=== PATIENT | female | born 1955 | race Caucasian/White ===

== ENCOUNTER 2023-12-11 17:35 | Inpatient (IN) | payer MEDICARE, SELFPAY ==
[2023-12-11] VITALS (15 sets, daily range): BP systolic 92–134; BP diastolic 42–62; PULSE 80–96; RESP 16–34; TEMP 37.1–38.6; O2SAT 92–99; BMI 36.6
--- NOTE | 2023-12-11 18:01 | DI.RAD.S_ITS ---
PROCEDURE: XR CHEST 1V INDICATIONS: suspected sepsis TECHNIQUE: One view of the chest was acquired. COMPARISON: None. FINDINGS: Surgical changes and devices: There is a right-sided chest port, with the tip overlying the mid to lower aspect of the superior vena cava, 2-3 cm cavoatrial junction. There is a closure device versus artifact overlying central inferior heart. Upper abdominal clips are seen. Lungs and pleura: An incomplete inspiratory result is noted, causing a crowded appearance to the lung markings. No focal infiltrates are seen. No pneumothorax or significant pleural effusions are seen. Mediastinum: Mediastinal contours appear normal. Heart size is normal. Atherosclerotic calcification of the aortic arch is noted. Bones and chest wall: No suspicious bony lesions. Age-appropriate bony degenerative changes are seen. Overlying soft tissues appear unremarkable. IMPRESSION: No focal infiltrates are seen. Low lung volumes, without an acute abnormality seen by plain film. Postoperative and degenerative changes are seen. Dictated by: Easton Alvarado M.D. on 12/11/2023 at 17:31 Approved by: Easton Alvarado M.D. on 12/11/2023 at 17:32
--- NOTE | 2023-12-11 18:04 | EKG_ITS ---
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
--- NOTE | 2023-12-11 18:28 | ED_ITS ---
HPI - Altered Mental Status General Chief Complaint: Altered Mental Status Stated Complaint: Fever, Poss UTI, Feel wonky Time Seen by Provider: 12/11/23 17:59 History of Present Illness HPI narrative: Patient is a 68-year-old female history of stage IV non-Hodgkin's lymphoma currently undergoing treatment presents today with altered mental status. She fell last week and was evaluated in [place] with CT scans is here visiting family/friend. Now reports of altered mental status last night today she seems to be coming and going no significant focal deficits or weakness. She is noted to be febrile here of 101. She denies any symptoms. She has no abdominal pain no chest pain no sore throat no other symptoms. She overall is not agrees historian. She is able to have some sort of conversation but most of her history is deferred to her best friend and her . She does have some medications that she takes but they do not have a list. They think her WBC count some where between 10 and 20 at baseline. Related Data Home Medications Medication Instructions Recorded Confirmed acyclovir 400 mg tablet mg PO 12/11/23 acyclovir 5 % topical ointment topical Q3H 12/11/23 bupropion HCl 150 mg 24 hr tablet, 150 mg PO DAILY 12/11/23 12/11/23 extended release duloxetine 60 mg capsule,delayed 60 mg PO DAILY 12/11/23 12/11/23 release gabapentin 300 mg capsule 300 mg PO ONCE PM 12/11/23 12/11/23 hydrocodone 5 mg-acetaminophen 325 1 tab PO Q6H PRN pain 12/11/23 12/11/23 mg tablet metoprolol succinate 25 mg 25 mg PO DAILY 12/11/23 12/11/23 tablet,extended release 24 hr omeprazole 20 mg capsule,delayed 40 mg PO QAM 12/11/23 12/11/23 release ondansetron HCl 4 mg tablet 4 - 8 mg PO Q4H PRN nausea 12/11/23 12/11/23 rosuvastatin 10 mg tablet 10 mg PO DAILY 12/11/23 12/11/23 spironolactone 25 mg tablet 12.5 mg PO DAILY 12/11/23 12/11/23 trazodone 50 mg tablet 25 mg PO DAILY 12/11/23 12/11/23 Allergies Allergy/AdvReac Type Severity Reaction Status Date / Time Latex, Natural Rubber Allergy Verified 12/11/23 20:01 Patient History Social History household members: spouse Smoking Status: Former smoker alcohol intake: never Exam Initial Vital Signs Initial Vital Signs: Vital Signs Pulse Oximetry 95 12/11/23 17:53 GENERAL: Alert 68-year-old female mildly confused HEENT: Hematoma noted right forehead significant contusion yellowing of face bilateral periorbital contusions, which are not new today CARDIOVASCULAR: Regular rate and rhythm without murmurs, rubs or gallops. RESPIRATORY: Breath sounds equal bilaterally, no wheezes rales or rhonchi. ABDOMEN: Soft, nontender. Normoactive bowel sounds all 4 quadrants. No guarding or rebound. EXTREMITIES: Normal range of motion, no clubbing or edema. Neurovascularly intact NEUROLOGICAL: Alert and oriented x2.Normal gait and speech. Cranial nerves II through XII grossly intact. Good [id number], good [id number], strength equal bilaterally, no dysarthria or aphasia, sensation in tact to soft touch bilaterally, no visual changes, no facial droop SKIN: Warm, dry, no laceration, no petechiae, no rashes or lesions. Scores GCS [place] coma scale eye opening: Spontaneous [place] coma scale verbal response: Confused [place] coma scale motor response: Obey commands [place] coma scale total score: 14 Course Orders Ordered: ED Orders 12/11/23 18:01 XR chest 1V Stat EKG-12 Lead Stat RT Consult Eval and Treat NOW 12/11/23 18:20 Complete Blood Count AUTO DIFF Stat Comprehensive Metabolic Panel Stat Lactate (Lactic Acid) Stat Lipase Stat PTT Partial Thromboplastin Robert Stat Procalcitonin Stat Prothrombin Time INR Stat 12/11/23 18:37 Respiratory Panel (Film Array) Stat 12/11/23 18:45 CT head/brain wo con Stat 12/11/23 18:48 Blood Culture Stat 12/11/23 19:37 Urine Culture Stat Urine Microscopic Stat 12/11/23 20:31 Education, smoking cessation ONGOING 12/11/23 20:34 Consult to Occupational Therapy Evaluate & Treat Consult to Physical Therapy Evaluate & Treat 12/11/23 21:35 Ammonia (NH3) Stat TSH [Thyroid Stimulating Hormone] Stat Acetaminophen (Acetaminophen 325 Mg Tablet) 650 mg PO Q6H PRN PRN Reason: Fever/Mild Pain (1-3) Atorvastatin Calcium (Atorvastatin 20 Mg Tablet) 20 mg PO DAILY [facility] Gabapentin (Gabapentin 300 Mg Capsule) 300 mg PO BEDTIME [facility] Last Admin: 12/12/23 00:36 Dose: 300 mg Documented By: Heparin Sodium (Porcine) (Heparin 5,000 Unit/Ml Vial) 5,000 unit SUBCUT BID [facility] Last Admin: 12/11/23 22:11 Dose: 5,000 unit Documented By: Sodium Chloride (Normal Saline 0.9%) 1,000 mls @ 100 mls/hr IV CONT [facility] Last Admin: 12/11/23 22:08 Dose: 100 mls/hr Documented By: Cefepime HCl 2 gm/ Sodium (Chloride) 100 mls @ 200 mls/hr IV Q12H [facility] Metoprolol Succinate (Metoprolol Er 25 Mg Tablet) 25 mg PO DAILY [facility] Naloxone HCl (Naloxone 0.4 Mg/Ml Vial) 0.2 mg IV Q2MIN PRN PRN Reason: Opiate Reversal Ondansetron HCl (Ondansetron 4 Mg/2 Ml Inj) 4 mg IV NOW PRN PRN Reason: Nausea And Vomiting Ondansetron HCl (Ondansetron 4 Mg/2 Ml Inj) 4 mg IV Q8HR PRN PRN Reason: Nausea And Vomiting Trazodone HCl (Trazodone 50 Mg Tablet) 25 mg PO BEDTIME [facility] Last Admin: 12/12/23 00:36 Dose: 25 mg Documented By: Discontinued Medications Acetaminophen (Acetaminophen 325 Mg Tablet) 975 mg PO NOW ONE Stop: 12/11/23 18:39 Last Admin: 12/11/23 19:01 Dose: 975 mg Documented By: MARIZOL Sodium Chloride (Normal Saline 0.9%) 1,000 mls @ 1,000 mls/hr IV BOLUS ONE Stop: 12/11/23 19:00 Last Admin: 12/11/23 18:39 Dose: 1,000 mls/hr Documented By: MARIZOL Cefepime HCl 2 gm/ Sodium (Chloride) 100 mls @ 200 mls/hr IV NOW ONE Stop: 12/11/23 18:39 Last Infusion: 12/11/23 20:00 Dose: Infused Documented By: ANN MARIEG Admin: 12/11/23 19:24 Dose: 200 mls/hr Documented By: MARIZOL Vancomycin HCl/Dextrose (Vancomycin) 2,000 mg in 400 mls @ 200 mls/hr IV NOW ONE Stop: 12/11/23 20:42 Last Admin: 12/11/23 20:08 Dose: 200 mls/hr Documented By: MARIZOL Vital Signs Vital signs: Vital Signs - 8 hr 12/11/23 17:53 12/11/23 17:54 12/11/23 17:54 Temperature Pulse Rate 86 Respiratory Rate Blood Pressure 134/62 Pulse Oximetry 95 99 Oxygen Delivery Method 12/11/23 17:58 12/11/23 18:01 12/11/23 18:30 Temperature 101.5 F H Pulse Rate 84 83 84 Respiratory Rate 16 34 H Blood Pressure 134/62 Pulse Oximetry 99 94 93 Oxygen Delivery Method Room Air 12/11/23 18:35 12/11/23 18:35 12/11/23 19:01 Temperature 101.4 F H Pulse Rate 86 Respiratory Rate 26 H Blood Pressure 92/55 L Pulse Oximetry 93 Oxygen Delivery Method 12/11/23 19:02 12/11/23 19:31 12/11/23 19:55 Temperature Pulse Rate 84 96 H Respiratory Rate Blood Pressure 117/58 L Pulse Oximetry 93 Oxygen Delivery Method 12/11/23 19:55 12/11/23 20:00 12/11/23 20:00 Temperature Pulse Rate 81 80 Respiratory Rate 27 H 26 H Blood Pressure 122/59 L Pulse Oximetry 92 92 Oxygen Delivery Method 12/11/23 20:09 12/11/23 20:30 12/11/23 20:31 Temperature 99.9 F H Pulse Rate 84 Respiratory Rate 23 Blood Pressure 108/57 L Pulse Oximetry 93 Oxygen Delivery Method 12/11/23 20:31 Temperature Pulse Rate 89 Respiratory Rate 18 Blood Pressure Pulse Oximetry 93 Oxygen Delivery Method MDM - Altered Mental Status Lab Data 12/11/23 18:20 12/11/23 18:20 Labs: Lab Results 12/11/23 12/11/23 12/11/23 Range/Units 18:20 18:37 19:37 WBC 6.7 (4.5-11.0) X10^3/uL RBC 3.78 L (4.0-5.2) X10^6/uL Hgb 11.3 L (12.0-16.0) g/dL Hct 33.3 L (36-46) % MCV 88.2 (80-100) fL MCH 29.8 (26-34) PG MCHC 33.8 (30-36) % RDW 14.7 (11.6-14.8) % Plt Count 208 (150-400) X10^3/uL Neut % (Auto) Not Reportable Lymph % (Auto) Not Reportable [place] % (Auto) Not Reportable Eos % (Auto) Not Reportable Baso % (Auto) Not Reportable Lymph # (Auto) Not Reportable [place] # (Auto) Not Reportable Baso # (Auto) Not Reportable Total Counted 100 Seg Neutrophils % 77.0 H (38-70) % Lymphocytes % (Manual) 6.0 L (25-45) % Monocytes % (Manual) 17.0 H (2-11) % Neutrophils # (Manual) 5159 (8109-5920) /uL RBC Morphology Normal morphology PT 13.4 H (9.4-12.5) SECONDS INR 1.2 (0.9-1.3) APTT 37 H (25.1-36.5) SECONDS Sodium 130 L (137-145) mmol/L Potassium 3.5 (3.4-5.1) mmol/L Chloride 98 (98-107) mmol/L Carbon Dioxide 26 (22-32) mmol/L BUN 20 H (7-17) mg/dL Creatinine 1.22 H (0.52-1.04) mg/dL Estimated GFR 48 L (>60) mL/min BUN/Creatinine Ratio 16.4 (6-22) Glucose 120 H (80-110) mg/dL Lactate 0.8 (0.7-2.1) mmol/L Calcium 8.8 (8.4-10.2) mg/dL Total Bilirubin 0.8 (0.2-1.3) mg/dL AST 38 H (14-36) IU/L ALT 33 (<35) IU/L Alkaline Phosphatase 107 (38-126) U/L Total Protein 7.2 (6.3-8.2) g/dL Albumin 3.8 (3.5-5.0) g/dL Globulin 3.4 (1.7-4.1) g/dL Albumin/Globulin Ratio 1.1 (1.0-2.8) Lipase 57 (23-300) U/L Procalcitonin 0.676 H (<0.5) ng/mL Urine RBC 0-1/hpf (0-5/HPF) Urine WBC 30-100/hpf H (0-5/HPF) Ur Squamous Epith Cells >30 /hpf H (0-5/HPF) Urine Bacteria Many (>30) H (None) Ur Culture Indicated? Specimen cultured Vol Urine Centrifuged 10ml (spun) Chlamy pneumoniae PCR Not detected (Not Detect) Adenovirus (PCR) Not detected (Not Detect) B. pertussis DNA (PCR) Not detected (Not Detect) B.parapertussis DNA PCR Not detected (Not Detecte) Coronavirus OC43 (PCR) Not detected (Not Detect) Coronavirus HKU1 (PCR) Not detected (Not Detect) Coronavirus 229E (PCR) Not detected (Not Detect) SARS-CoV-2 (PCR) Not detected (Not Detecte) Coronavirus NL63 (PCR) Not detected (Not Detect) Human Metapneumovir PCR Not detected (Not Detect) Influenza Type A (PCR) Not detected (Not Detect) Influenza Type B (PCR) Not detected (Not Detect) M. pneumoniae (PCR) Not detected (Not Detect) Parainfluenza 1 (PCR) Not detected (Not Detect) Parainfluenza 2 (PCR) Not detected (Not Detect) Parainfluenza 3 (PCR) Not detected (Not Detect) Parainfluenza 4 (PCR) Not detected (Not Detect) RSV (PCR) Not detected (Not Detect) Entero/Rhino (PCR) Not detected (Not Detect) Urine Dip Bedside Urine Glucose Negative Bedside Urine Bilirubin - Negative Bedside Urine Ketone - Negative Urine Specific [place] 1.020 Bedside Urine Occult Blood +/- Bedside Urine pH 6.0 Bedside Urine Protein + 30 Bedside Urine Urobilinogen - Negative Bedside Urine Nitrite - Negative Bedside Urine Leukocytes + 70 Esterase Imaging Data Chest x-ray: Radiologist's Impression: PROCEDURE: XR CHEST 1V INDICATIONS: suspected sepsis TECHNIQUE: One view of the chest was acquired. COMPARISON: None. FINDINGS: Surgical changes and devices: There is a right-sided chest port, with the tip overlying the mid to lower aspect of the superior vena cava, 2-3 cm cavoatrial junction. There is a closure device versus artifact overlying central inferior heart. Upper abdominal clips are seen. Lungs and pleura: An incomplete inspiratory result is noted, causing a crowded appearance to the lung markings. No focal infiltrates are seen. No pneumothorax or significant pleural effusions are seen. Mediastinum: Mediastinal contours appear normal. Heart size is normal. Atherosclerotic calcification of the aortic arch is noted. Bones and chest wall: No suspicious bony lesions. Age-appropriate bony degenerative changes are seen. Overlying soft tissues appear unremarkable. IMPRESSION: No focal infiltrates are seen. Low lung volumes, without an acute abnormality seen by plain film. Postoperative and degenerative changes are seen. Dictated by: Easton Alvarado M.D. on 12/11/2023 at 17:31 CT scan - head: Radiologist's Impression: PROCEDURE: CT HEAD/BRAIN WO CON INDICATIONS: altered mental status, prior falls TECHNIQUE: Noncontrast 4.5 mm thick angled axial sections acquired from the foramen magnum to the vertex, with coronal and sagittal reformats. For radiation dose reduction, the following was used: automated exposure control, adjustment of mA and/or kV according to patient size. COMPARISON: [facility], CT, CT HEAD WITHOUT CONTRAST, 04/26/2019, 23:24. [facility], CR, XR CHEST 1V, 12/11/2023, 17:59. FINDINGS: Image quality: Mild streak artifact can be seen through the skull base. CSF spaces: Basal cisterns are patent. No extra-axial fluid collections. The ventricles are symmetric in size and shape. Brain: No intracranial bleeds or masses. There is cerebral volume loss for age, with resultant ventricular and sulcal prominence. There are periventricular and deep white matter chronic small vessel ischemic changes. Remote infarcts can be seen involving both occipital lobes. Additional smaller infarcts can be seen scattered elsewhere within the cerebral hemispheres. There is intracranial internal carotid artery atherosclerosis. Skull and face: There is a right forehead scalp hematoma seen. No associated calvarial fracture can be seen. Calvarium and visualized facial bones appear intact, without suspicious lesions. Sinuses: Visualized sinuses and mastoids are clear. IMPRESSION: There is a right forehead scalp hematoma seen, without an associated regional fracture. No acute intracranial hemorrhage is seen. No acute intracranial process is seen. 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 Additional smaller scattered infarcts can be seen elsewhere within the cerebral hemispheres. These infarcts are new compared to 2019. Dictated by: Easton Alvarado M.D. on 12/11/2023 at 18:19 ECG Data Interpretation: Normal sinus rhythm rate 81 SD interval 150 QRS [address] changes MDM Narrative Medical decision making narrative: [facility] CC: Altered mental status Complicating co-morbidities: Non-Hodgkin's lymphoma currently on chemo, per patient normal WBC is between 10 and 20, last chemo about 4 weeks ago Data collected from: and close friend Medical records reviewed: None Differential considered: Sepsis infection, meningitis, encephalitis neutropenia, CVA, intracranial hemorrhage, toxicology Exam documented above, pertinent findings include: Significant contusion. Patient is neurologically intact however she has overall a poor historian she has no focal deficits Lab Test results independently reviewed as above. Pertinent findings: WBCs 6.7 platelets 208, lactate 0.8, procalcitonin 0.676, creatinine 1.22 unknown what her baseline is Respiratory panel negative Ammonia negative Independently reviewed EKG as above sinus rhythm no ischemia Imaging studies independently reviewed: No pneumonia head CT negative Consultations: Dr. Ventura accepts to inpatient Treatments: IV fluid 100 cc an hour cefepime and vancomycin for high-risk Re-evaluations: Patient doing a little bit better but still confused, she did have a drop in blood pressure to the 90s but quickly improved Discussion: Patient is 68-year-old female with non-Hodgkin's lymphoma on chemo presenting today with fever and altered mental status. Urinalysis does have leukocytes and bacteria but no nitrates. Respiratory panel is negative no evidence of a pneumonia. It is presumed to be a UTI. She has no significant headache or neck pain. Really she has no pain at abdomen is soft nontender. She is mildly confused GCS 14. Blood work is surprisingly normal she has not neutropenic she has no significant leukocytosis lactate is within normal limits procalcitonin is mildly elevated but not greater than 1, she has a normal bilirubin, respiratory panel is negative. She would 1 hypotensive episode of 92/55 which did resolve with fluids. Due to her significant change in altered mental status, discussed with family about admission She was empirically treated with cefepime and vancomycin due to high-risk and concern for possible neutropenia however she has not neutropenic. Discharge Plan Departure Patient Disposition: Admitted As Inpatient Clinical Impression: Acute metabolic encephalopathy, Acute UTI Admit Date/Time: 12/11/23 20:31 Admit Provider: Jose Ventura
[2023-12-11 18:34] LABS: Hematocrit 33.3 % (36-46); Hemoglobin 11.3 g/dL (12.0-16.0); Mean Corpuscular HGB Conc 33.8 % (30-36); Mean Corpuscular Hemoglobin 29.8 PG (26-34); Mean Corpuscular Volume 88.2 fL (80-100); Platelet Count 208 X10^3/uL (150-400); Red Blood Cell Count 3.78 X10^6/uL (4.0-5.2); Red Cell Distribution Width 14.7 % (11.6-14.8); White Blood Cell Count 6.7 X10^3/uL (4.5-11.0)
[2023-12-11 18:35] LABS: Add Manual Diff / Slide Review YES
[2023-12-11 18:36] LABS: INR 1.2 (0.9-1.3); Prothrombin Time 13.4 SECONDS (9.4-12.5)
[2023-12-11 18:39] LABS: Lactate (Lactic Acid) 0.8 mmol/L (0.7-2.1); PTT Partial Thromboplastin Tim 37 SECONDS (25.1-36.5)
[2023-12-11] MEDS: SODIUM CHLORIDE 0.9% 1,000 ML 1000 ML IV (18:39)
[2023-12-11 18:40] LABS: Alanine Aminotransferase 33 IU/L (<35); Albumin 3.8 g/dL (3.5-5.0); Albumin Globulin Ratio 1.1 (1.0-2.8); Alkaline Phosphatase 107 U/L (38-126); Aspartate Aminotransferase 38 IU/L (14-36); BUN Creatinine Ratio 16.4 (6-22); Bilirubin Total 0.8 mg/dL (0.2-1.3); Blood Urea Nitrogen 20 mg/dL (7-17); Calcium 8.8 mg/dL (8.4-10.2); Carbon Dioxide 26 mmol/L (22-32); Chloride 98 mmol/L (98-107); Estimated Glomerular Filt Rate 48 mL/min (>60); Globulin 3.4 g/dL (1.7-4.1); Glucose 120 mg/dL (80-110); HEMOLYSIS < 15 (0-50); Lipase 57 U/L (23-300); Potassium 3.5 mmol/L (3.4-5.1); Sodium 130 mmol/L (137-145); Total Protein 7.2 g/dL (6.3-8.2)
--- NOTE | 2023-12-11 18:45 | DI.CT.S_ITS ---
PROCEDURE: CT HEAD/BRAIN WO CON INDICATIONS: altered mental status, prior falls TECHNIQUE: Noncontrast 4.5 mm thick angled axial sections acquired from the foramen magnum to the vertex, with coronal and sagittal reformats. For radiation dose reduction, the following was used: automated exposure control, adjustment of mA and/or kV according to patient size. COMPARISON: [facility], CT, CT HEAD WITHOUT CONTRAST, 04/26/2019, 23:24. [facility], CR, XR CHEST 1V, 12/11/2023, 17:59. FINDINGS: Image quality: Mild streak artifact can be seen through the skull base. CSF spaces: Basal cisterns are patent. No extra-axial fluid collections. The ventricles are symmetric in size and shape. Brain: No intracranial bleeds or masses. There is cerebral volume loss for age, with resultant ventricular and sulcal prominence. There are periventricular and deep white matter chronic small vessel ischemic changes. Remote infarcts can be seen involving both occipital lobes. Additional smaller infarcts can be seen scattered elsewhere within the cerebral hemispheres. There is intracranial internal carotid artery atherosclerosis. Skull and face: There is a right forehead scalp hematoma seen. No associated calvarial fracture can be seen. Calvarium and visualized facial bones appear intact, without suspicious lesions. Sinuses: Visualized sinuses and mastoids are clear. IMPRESSION: There is a right forehead scalp hematoma seen, without an associated regional fracture. No acute intracranial hemorrhage is seen. No acute intracranial process is seen. 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 Additional smaller scattered infarcts can be seen elsewhere within the cerebral hemispheres. These infarcts are new compared to 2019. Dictated by: Easton Alvarado M.D. on 12/11/2023 at 18:19 Approved by: Easton Alvarado M.D. on 12/11/2023 at 18:21
[2023-12-11 18:48] LABS: Neutrophils Absolute Manual 5159 /uL (3000-5900); RBC Morphology Normal Morphology; Total Cells Counted 100
[2023-12-11 18:57] LABS: Procalcitonin 0.676 ng/mL (<0.5)
[2023-12-11] MEDS: ACETAMINOPHEN 325 MG TABLET 975 MG PO (19:01)
[2023-12-11] MEDS: CEFEPIME 2 GM in SODIUM CHLORIDE 0.9% 100 ML IV (19:24)
[2023-12-11 19:49] LABS: Adenovirus Not Detected (Not Detect); B. parapertussis Not Detected (Not Detecte); Bordetella pertussis Not Detected (Not Detect); Chlamydophila pneumoniae Not Detected (Not Detect); Coronavirus 229E Not Detected (Not Detect); Coronavirus HKU1 Not Detected (Not Detect); Coronavirus NL 63 Not Detected (Not Detect); Coronavirus OC43 Not Detected (Not Detect); Human Metapneumovirus Not Detected (Not Detect); Human Rhinovirus/Enterovirus Not Detected (Not Detect); Influenza A Not Detected (Not Detect); Influenza B Not Detected (Not Detect); Mycoplasma pneumoniae Not Detected (Not Detect); Parainfluenza Virus 1 Not Detected (Not Detect); Parainfluenza Virus 2 Not Detected (Not Detect); Parainfluenza Virus 3 Not Detected (Not Detect); Parainfluenza Virus 4 Not Detected (Not Detect); Respiratory Syncytial Virus Not Detected (Not Detect); SARS- CoV-2 Not Detected (Not Detecte)
[2023-12-11 19:50] LABS: Bacteria Urine Many (>30); Culture Indicated Urine Specimen Cultured; RBC Urine 0-1/HPF (0-5/HPF); Squamous Epithelial Cell Urine >30 /HPF (0-5/HPF); Urine Volume 10mL (spun); WBC Urine 30-100/HPF (0-5/HPF)
--- NOTE | 2023-12-11 20:00 | EKG_ITS ---
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
[2023-12-11] MEDS: VANCOMYCIN 2,000 MG/400 ML PIGGYBACK 200 MG IV (20:08)
[2023-12-11 21:57] LABS: Ammonia (NH3) < 9 umol/L (9-30)
[2023-12-11] MEDS: SODIUM CHLORIDE 0.9% 1,000 ML 100 ML IV (22:08)
[2023-12-11] MEDS: HEPARIN 5,000 UNIT/ML VIAL 5000 UNIT SUBCUT (22:11)
[2023-12-11 22:45] LABS: Thyroid Stimulating Hormone 1.15 uIU/mL (0.47-4.68)
[2023-12-12] VITALS (7 sets, daily range): BP systolic 105–128; BP diastolic 42–55; PULSE 65–88; RESP 16–18; TEMP 36.4–37.1; O2SAT 93–98
[2023-12-12] MEDS: TRAZODONE 50 MG TABLET 25 MG PO ×2 (00:36→20:05)
[2023-12-12] MEDS: GABAPENTIN 300 MG CAPSULE PO ×2 (00:36→20:05)
--- NOTE | 2023-12-12 01:11 | P.HP_ITS ---
History of Present Illness History of Present Illness Chief complaint: Fever, Poss UTI, Feel wonky Narrative: 68-year-old female with past medical history of stage four non-Hodgkin?s lymphoma currently on treatment presents with confusion. Of note, the patient is from out of town and is visiting here. The patient had a fall last week and was evaluated at outside hospital, including a CT scan of the brain which was found to have no acute intracranial finding. However, per patient?s family report, the patient was more confused last night. However, there?s no report any focal deficit or weakness. The patient also spike a fever of 101F today. Of note due to patient?s confusion, direct history is unreliable and can be obtained. In emergency room, the patient was hemodynamically stable. However, lab came back with WBC, 6.7 and a normal lactic acid. Sodium 130 Cr 1.22 and pro calcitonin 0.67. UA positive for many bacteria and WBC and positive Lueko esterase. Patient was given vancomycin and Cefepime. CT head shows no acute intracranial finding. Chest x-ray was clear. [facility] Social History household members: spouse Smoking Status: Former smoker alcohol intake: never Meds Home Medications and Allergies Home Medications Medication Instructions Recorded Confirmed Type acyclovir 400 mg tablet mg PO 12/11/23 History acyclovir 5 % topical ointment topical Q3H 12/11/23 History bupropion HCl 150 mg 24 hr tablet, 150 mg PO DAILY 12/11/23 12/11/23 History extended release duloxetine 60 mg capsule,delayed 60 mg PO DAILY 12/11/23 12/11/23 History release gabapentin 300 mg capsule 300 mg PO ONCE PM 12/11/23 12/11/23 History hydrocodone 5 mg-acetaminophen 325 1 tab PO Q6H PRN pain 12/11/23 12/11/23 History mg tablet metoprolol succinate 25 mg 25 mg PO DAILY 12/11/23 12/11/23 History tablet,extended release 24 hr omeprazole 20 mg capsule,delayed 40 mg PO QAM 12/11/23 12/11/23 History release ondansetron HCl 4 mg tablet 4 - 8 mg PO Q4H PRN nausea 12/11/23 12/11/23 History rosuvastatin 10 mg tablet 10 mg PO DAILY 12/11/23 12/11/23 History spironolactone 25 mg tablet 12.5 mg PO DAILY 12/11/23 12/11/23 History trazodone 50 mg tablet 25 mg PO DAILY 12/11/23 12/11/23 History Allergies Allergy/AdvReac Type Severity Reaction Status Date / Time Latex, Natural Rubber Allergy Verified 12/11/23 20:01 Review of Systems Review of Systems ROS: Yes All systems reviewed with the patient and are negative except as otherwise documented Exam Vital Signs (past 8 hours): - 12/11/23 17:53 12/11/23 17:54 12/11/23 17:54 Temperature Pulse Rate 86 Respiratory Rate Blood Pressure 134/62 Pulse Oximetry 95 99 Oxygen Delivery Method Oxygen Flow Rate 12/11/23 17:58 12/11/23 18:01 12/11/23 18:30 Temperature 101.5 F H Pulse Rate 84 83 84 Respiratory Rate 16 34 H Blood Pressure 134/62 Pulse Oximetry 99 94 93 Oxygen Delivery Method Room Air Oxygen Flow Rate 12/11/23 18:35 12/11/23 18:35 12/11/23 19:01 Temperature 101.4 F H Pulse Rate 86 Respiratory Rate 26 H Blood Pressure 92/55 L Pulse Oximetry 93 Oxygen Delivery Method Oxygen Flow Rate 12/11/23 19:02 12/11/23 19:31 12/11/23 19:55 Temperature Pulse Rate 84 96 H Respiratory Rate Blood Pressure 117/58 L Pulse Oximetry 93 Oxygen Delivery Method Oxygen Flow Rate 12/11/23 19:55 12/11/23 20:00 12/11/23 20:00 Temperature Pulse Rate 81 80 Respiratory Rate 27 H 26 H Blood Pressure 122/59 L Pulse Oximetry 92 92 Oxygen Delivery Method Oxygen Flow Rate 12/11/23 20:09 12/11/23 20:30 12/11/23 20:31 Temperature 99.9 F H Pulse Rate 84 Respiratory Rate 23 Blood Pressure 108/57 L Pulse Oximetry 93 Oxygen Delivery Method Oxygen Flow Rate 12/11/23 20:31 12/11/23 22:54 Temperature 98.8 F Pulse Rate 89 83 Respiratory Rate 18 17 Blood Pressure 106/42 L Pulse Oximetry 93 96 Oxygen Delivery Method Oxygen Flow Rate 0 Oxygen Delivery Method Room Air Oxygen Flow Rate 0 Narrative Exam Narrative: GENERAL: The patient is not in any acute distressed. Awake and alert. HEENT: Nonicteric sclerae, PERRLA, EOMI. Oropharynx clear. Moist mucous membranes. Conjunctivae appear well perfused. HEART: Regular rate and rhythm without murmurs. No lower extremities edema. LUNGS: Clear to auscultation bilaterally. No wheezing, crackles or rhonchi ABDOMEN: Soft, positive bowel sounds, nontender. SKIN: No rash, no excessive bruising, petechiae, or purpura. NEUROLOGIC: AxO x 3. Cranial nerves II-XII intact without motor/sensory deficit. Objective Labs 12/11/23 18:20 12/11/23 18:20 Labs: Laboratory Results - last 24 hr 12/11/23 12/11/23 12/11/23 18:20 18:37 19:37 WBC 6.7 RBC 3.78 L Hgb 11.3 L Hct 33.3 L MCV 88.2 MCH 29.8 MCHC 33.8 RDW 14.7 Plt Count 208 Neut % (Auto) Not Reportable Lymph % (Auto) Not Reportable [place] % (Auto) Not Reportable Eos % (Auto) Not Reportable Baso % (Auto) Not Reportable Lymph # (Auto) Not Reportable [place] # (Auto) Not Reportable Baso # (Auto) Not Reportable Total Counted 100 Seg Neutrophils % 77.0 H Lymphocytes % (Manual) 6.0 L Monocytes % (Manual) 17.0 H Neutrophils # (Manual) 5159 RBC Morphology Normal morphology PT 13.4 H INR 1.2 APTT 37 H Sodium 130 L Potassium 3.5 Chloride 98 Carbon Dioxide 26 BUN 20 H Creatinine 1.22 H Estimated GFR 48 L BUN/Creatinine Ratio 16.4 Glucose 120 H Lactate 0.8 Calcium 8.8 Total Bilirubin 0.8 AST 38 H ALT 33 Alkaline Phosphatase 107 Ammonia Total Protein 7.2 Albumin 3.8 Globulin 3.4 Albumin/Globulin Ratio 1.1 Lipase 57 Procalcitonin 0.676 H TSH Urine RBC 0-1/hpf Urine WBC 30-100/hpf H Ur Squamous Epith Cells >30 /hpf H Urine Bacteria Many (>30) H Ur Culture Indicated? Specimen cultured Vol Urine Centrifuged 10ml (spun) Chlamy pneumoniae PCR Not detected Adenovirus (PCR) Not detected B. pertussis DNA (PCR) Not detected B.parapertussis DNA PCR Not detected Coronavirus OC43 (PCR) Not detected Coronavirus HKU1 (PCR) Not detected Coronavirus 229E (PCR) Not detected SARS-CoV-2 (PCR) Not detected Coronavirus NL63 (PCR) Not detected Human Metapneumovir PCR Not detected Influenza Type A (PCR) Not detected Influenza Type B (PCR) Not detected M. pneumoniae (PCR) Not detected Parainfluenza 1 (PCR) Not detected Parainfluenza 2 (PCR) Not detected Parainfluenza 3 (PCR) Not detected Parainfluenza 4 (PCR) Not detected RSV (PCR) Not detected Entero/Rhino (PCR) Not detected 12/11/23 21:35 WBC RBC Hgb Hct MCV MCH MCHC RDW Plt Count Neut % (Auto) Lymph % (Auto) [place] % (Auto) Eos % (Auto) Baso % (Auto) Lymph # (Auto) [place] # (Auto) Baso # (Auto) Total Counted Seg Neutrophils % Lymphocytes % (Manual) Monocytes % (Manual) Neutrophils # (Manual) RBC Morphology PT INR APTT Sodium Potassium Chloride Carbon Dioxide BUN Creatinine Estimated GFR BUN/Creatinine Ratio Glucose Lactate Calcium Total Bilirubin AST ALT Alkaline Phosphatase Ammonia < 9 L Total Protein Albumin Globulin Albumin/Globulin Ratio Lipase Procalcitonin TSH 1.15 Urine RBC Urine WBC Ur Squamous Epith Cells Urine Bacteria Ur Culture Indicated? Vol Urine Centrifuged Chlamy pneumoniae PCR Adenovirus (PCR) B. pertussis DNA (PCR) B.parapertussis DNA PCR Coronavirus OC43 (PCR) Coronavirus HKU1 (PCR) Coronavirus 229E (PCR) SARS-CoV-2 (PCR) Coronavirus NL63 (PCR) Human Metapneumovir PCR Influenza Type A (PCR) Influenza Type B (PCR) M. pneumoniae (PCR) Parainfluenza 1 (PCR) Parainfluenza 2 (PCR) Parainfluenza 3 (PCR) Parainfluenza 4 (PCR) RSV (PCR) Entero/Rhino (PCR) Assessment & Plan Assessment & Plan narrative: UTI. Admitthe patient to medical floor. Of note the patient is not septic at this time. Continue IV Cefepime and monitor for sepsis. Follow up urine culture. Acute encephalopathy. Note CT head shows no acute intracranial finding. Confusion could be related to UTI. Will also obtain TSH and ammonia level. Treat underlying infection monitor mental status with IV fluid. Mentation is now improving and close to baseline Patient now is oriented x 3. Dehydration. Cr 1.22. IV fluid and monitor renal function. Generalized weakness. PT, OT. Hyperlipidemia resume home statin Hypertension, monitor blood pressure and resume blood pressure medication accordingly. DVT prophylaxis heparin SQ Code status DNR/DNI Disposition likely home in 2 to 3 days. Time-Based Coding :: [TOTAL MINUTES] spent with patient and on the chart (including review of chart, obtaining history, exam, reviewing outside data, placing orders, documenting exam and treatment plan, and counseling patient) on [DATE].
[2023-12-12] MEDS: CEFEPIME 2 GM in SODIUM CHLORIDE 0.9% 100 ML IV (05:09)
[2023-12-12 06:25] LABS: Add Manual Diff / Slide Review NO; Basophils Absolute Auto 0 /uL (0-100); Basophils Percent Auto 0.2 % (0-2); Eosinophils Absolute Auto 0 /uL (0-450); Eosinophils Percent Auto 0.3 % (2-4); Hematocrit 32.3 % (36-46); Hemoglobin 10.7 g/dL (12.0-16.0); Lymphocytes Absolute Auto 400 /uL (1100-4500); Lymphocytes Percent Auto 6.7 % (25-40); Mean Corpuscular HGB Conc 33.1 % (30-36); Mean Corpuscular Hemoglobin 29.4 PG (26-34); Mean Corpuscular Volume 88.6 fL (80-100); Monocytes Absolute Auto 1300 /uL (0-900); Monocytes Percent Auto 20.3 % (3-14); Neutrophils Absolute Auto 4600 /uL (1500-7000); Neutrophils Percent Auto 72.5 % (50-75); Platelet Count 208 X10^3/uL (150-400); Red Blood Cell Count 3.64 X10^6/uL (4.0-5.2); Red Cell Distribution Width 14.4 % (11.6-14.8); White Blood Cell Count 6.3 X10^3/uL (4.5-11.0)
[2023-12-12 06:36] LABS: Blood Urea Nitrogen 17 mg/dL (7-17); Calcium 8.5 mg/dL (8.4-10.2); Carbon Dioxide 21 mmol/L (22-32); Chloride 103 mmol/L (98-107); Estimated Glomerular Filt Rate 53 mL/min (>60); Glucose 102 mg/dL (80-110); HEMOLYSIS < 15 (0-50); Potassium 3.2 mmol/L (3.4-5.1); Sodium 133 mmol/L (137-145)
--- NOTE | 2023-12-12 08:08 | PT.IIE ---
Current Diagnoses Urinary tract infection, site not specified (12/11/23) Physical Therapy Inpatient Evaluation/Re-Eval M1 PT/OT-IP Prior Functional Status Start: 12/12/23 06:56 Freq: NEEDED Status: Active Protocol: Document 12/12/23 07:42 MB (Rec: 12/12/23 08:08 MB [id number]) Medical Review Prior Functional Status Medical History Reviewed Yes Diet/Fluid Consistency Regular Communication WNLs Mobility and Gait I, one fall when her slipper got stuck and she hit her head into the wall last week Activities of Daily Living and IADL's I Prior Functional Level (Other details) Flight of steps to enter home. Pt states that their home in [place] is for sale and they are living in an attached apartment above. Social History Household Members spouse Living Arrangements House Number of Stairs To Enter/Railing? Flight of steps with right rail to enter apartment above their house Home Environment Standard Height Toilet,Tub/ Shower Employment Status Retired M2 PT-IP Current Condition Start: 12/12/23 06:56 Freq: NEEDED Status: Active Protocol: Document 12/12/23 07:42 MB (Rec: 12/12/23 08:08 [id number]) Physical Therapy Current Condition Current Condition Evaluation Date 12/12/23 Treatment Diagnosis Fever, confusion, UTI, recent fall and hit head/face M3 PT-IP Subjective Start: 12/12/23 06:56 Freq: NEEDED Status: Active Protocol: Document 12/12/23 07:42 MB (Rec: 12/12/23 08:08 [id number]) Subjective Physical Therapy Visit Type Type Initial Evaluation Visit Start Time 07:42 Visit Stop Time 07:55 Number of TELEVISION ENGINEER Visits 0 Physical Therapy Visit Comments Patient Comments Pt reports many UTIs since 2014, she is agreeable to PT. Therapy Pain Assessment Pain When Pain Assessed At Rest Pain Present Pain Present Pain Reported Location B shoulders Intensity 1 Scale Used HolderAlyssaHarris (Faces) M4 PT-IP Mobility and Gait Start: 12/12/23 06:56 Freq: NEEDED Status: Active Protocol: Document 12/12/23 07:42 MB (Rec: 12/12/23 08:08 MB [id number]) PT-Bed Mobility Assessment Rolling Type of Rolling Roll to Left Level of Assist Standby Assistance Supine to Sit Supine to Sit Standby Assistance,1 Person Assistance,Head of Bed Elevated,Bedrails Scooting Scooting to Edge of Bed Standby Assistance PT-Transfer Assessment Sit to and From Stand Sit to and from Stand Contact Guard Assistance,1 Person Assistance,Use of Upper Extremities Equipment Transfer Assistive Device Gait Belt,Front Wheeled Walker Orthotic/Prosthetic Devices or Brace: No Transfers Transfer Destination Toilet Transfer Ability Level of Assist Contact Guard Assistance,1 Person Assistance,Use of Upper Extremities Gait Assessment Gait Gait Assistance Required: Contact Guard Assist Distance (Feet) 15 Able to Maintain Weight Bearing Status Yes During Gait Assistive Devices Assistive Device Gait Belt,Front Wheeled Walker Orthotic/Prosthetic Devices or Brace: No Gait Deviations General Gait Pattern Decreased Stride Length, Decreased Feet Clearance, Flexed Trunk,Wide Based Gait Factors Limiting Gait Function Factors Limiting Gait Function Difficulty Following Directions,Incoordination,Poor Balance,Poor Safety Awareness Comments Gait Comments Pt has trouble initiating use of RW and tends to walk towards the wall rather than towards the BR. She denies dizziness with PT this a.m. and reports history of occ feeling wonky when she is up but she is not clear about it . Poor safety awareness and tends to sit back before reaching commode and does not let go of walker before sitting. PT-Balance Assessment Sitting Balance and Reactions Static Sitting Balance Ability Good Dynamic Sitting Balance Ability Good Standing Balance and Reactions Static Standing Balance Ability Fair Dynamic Standing Balance Ability Fair Device Used RW M5 PT-IP Objective Assessments Start: 12/12/23 06:56 Freq: NEEDED Status: Active Protocol: Document 12/12/23 07:42 MB (Rec: 12/12/23 08:08 MB [id number]) Orientation Orientation/Cognition Level of Alertness Alert Orientation Name,Age,Birthday,Month,Year, Place,Situation Language Function Ability No Deficits Noted Safety Awareness Decreased Safety Awareness Memory Description No Deficits Noted Comments Stated date as and may benefit from OT SLUMS testing next date Gross Range of Motion Upper Extremity ROM Impairments Functional and c/o B shoulder pain from fall. States she was checked out in [place] and her neck was clear Lower Extremity ROM Assessment Within Functional Limits Strength Comments Strength Comments Functional observation of strength today given recent fall and c/o pain Sensation Assessment Comments Sensation Comments Pt denies paresthesias Muscle Tone Muscle Tone WNL Yes Other Assessments Other Other Assessments Pt with ecchymosis under B eyes from recent fall M6 PT-IP Treatment Start: 12/12/23 06:56 Freq: NEEDED Status: Active Protocol: Document 12/12/23 07:42 MB (Rec: 12/12/23 08:08 MB [id number]) Physical Therapy Treatment Education Education Provided Safety M7 PT-IP Assessment and Plan Start: 12/12/23 06:56 Freq: NEEDED Status: Active Protocol: Document 12/12/23 07:42 MB (Rec: 12/12/23 08:08 MB [id number]) PT Summary Assessment and Plan Potential Rehabilitation Potential Good Status of Condition at Evaluation Evolving Summary Impairments Pain,Balance,Cognition,Bed Mobility,Transfers,Gait, Activity Tolerance Assessment Summary Pt is a 68 y/o female presenting with reports of B shoulder pain after recent fall in her home in [place]. She denies dizziness with PT when getting up and PT notes some bowel incontinence on pad and so gait to BR this a.m. Pt has some decreased safety awareness with use of walker and sitting. Recommend up with nsg for all meals. Will con't PT as pt in hospital to maximize functional I and perform steps. Her drove them to [employer] and will assist her at d/c. Her good friend is here as well and they have been staying there. Goals Bed Mobility Goal Independent Transfer Goal Independent,Cane,Front Wheeled Walker,Four Wheeled Walker Gait Goal Independent,Cane,Front Wheel Walker,Four Wheel Walker Gait Distance 100 Other Goals Pt will ascend and descend at least 6 steps with right rail and no more than CGA ascend to allow safe home entrance. Progress gait without AD. Frequency of Treatment Frequency Of Treatment Once a Day Treatment Plan Physical Therapy Treatment Plan Bed Mobility Training,Transfer Training,Gait Training, Therapeutic Exercise,Balance Retraining,Discharge Planning, Hot or Cold Pack,Neuromuscular Re-ed Precautions Other Precautions Fall risk Recommendations To Nursing Amount of Assist Needed 1 Person Assist Discharge Recommendations PT Discharge Recommendations Home with 21/09 Assist Available Other Discharge Recommendations Possible HH PT safety eval Equipment Needed for Home Before May need RW Discharge Transportation Needs at Discharge Private Vehicle
[2023-12-12] MEDS: ATORVASTATIN 20 MG TABLET PO (08:11)
[2023-12-12] MEDS: METOPROLOL ER 25 MG TABLET PO (08:11)
[2023-12-12] MEDS: POTASSIUM CHLORIDE 20 MEQ TAB PO ×2 (08:11→10:06)
[2023-12-12] MEDS: SODIUM CHLORIDE 0.9% 1,000 ML 100 ML IV (08:12)
[2023-12-12] MEDS: HEPARIN 5,000 UNIT/ML VIAL 5000 UNIT SUBCUT ×2 (08:12→20:05)
[2023-12-12] MEDS: ACETAMINOPHEN 325 MG TABLET 650 MG PO ×2 (11:48→17:50)
--- NOTE | 2023-12-12 13:33 | CM.DANOTE ---
B DCP Assessment note pt is a 68yo F here with UTI/acute metabolic encephalopathy. PMH of stage 4 non-Hodgkin's Lymphoma. PCP none listed, pt is from out of town. Payer Medicare and self pay [employer] reviewed EMR. Pt and spouse are here visiting from [place]. Had a fall last week, hospital closer to home did CT no signs of stroke. bruising on face from fall. Pt getting IV abx for UTI. mentation has since improved with antibiotics. PT=home with assistance. Per PT, may need order for walker for home use at dc. PT unsure how much spouse is able to provide assistance. [employer] [facility] unable to meet with pt at this time due to triaging needs P: anticipate home with spouse when medically stable, CM team will r/o need for walker closer to dc. CM team will continue to follow as needed JOSE Mayorga Discharge Planning/Care Management CM Discharge Assessment Start: 12/12/23 13:32 Freq: Status: Active Protocol: Document 12/12/23 13:32 (Rec: 12/12/23 13:33 [id number]) Discharge Planning Assessment Assigned Die Set Up Worker JOSE Avilez DPOA/Assigned Designee Name monse Reynaga Contact Information [phone] Advance Directives? No History Provided By Patient Prior Living Arrangements House Household Members spouse Independent with ADL's Yes Is patient alert and oriented? Yes Discharge Plan Home Transportation Arrangement likely family in [place] Referrals Initiated None needed Whiteboard Updated in Patient Room with No name and ext. # of Die Set Up Worker Review Status In Process Please Provide Date Initial DC 12/12/23 Assessment Was Performed Next Review Type Continued Stay Review
--- NOTE | 2023-12-12 14:01 | PM.PN.1 ---
Subjective Subjective Interval history: 68-year-old female with stage IV non-Hodgkin's lymphoma my hypertension, hyperlipidemia, GERD, depression is admitted overnight with UTI and acute metabolic encephalopathy. Patient reports she feels quite a bit better today. She states she feels less confused. She has been up to the bathroom and has felt more steady on her feet. She was not able to eat breakfast but feels she had a good lunch. She reports her oral intake is good. No nausea or vomiting. No flank pain. No suprapubic pain. And her are visiting from [place] [facility] her sister. She states she had treatment in August of this year for her non-Hodgkin's lymphoma. She is now back on surveillance. She states she last had a period of remission that lasted 3 years after previous treatment. Exam Vital Signs (past 8 hours): - 12/12/23 08:11 12/12/23 10:00 12/12/23 12:05 Temperature 97.9 F 97.6 F Pulse Rate 77 88 80 Respiratory Rate 16 16 Blood Pressure 117/54 L 112/48 L Pulse Oximetry 93 98 Oxygen Delivery Method Room Air Oxygen Flow Rate 0 Narrative Exam Narrative: GEN: Alert and oriented x 3, NAD HEENT:NC, Face symmetric, she has a large hematoma over her right eyebrow and bilateral periorbital bruising (raccoon eyes) CHEST: Respiratory excursions symmetric, CTAB CV: RRR, no M/R/G ABD: Soft, NT/ND, BT present in all 4 quadrants, no organomegaly or masses EXTR: warm, well perfused, no C/C/E SKIN: warm and dry, no rash NEURO: Alert and oriented x 3, nonfocal Objective Labs 12/12/23 05:35 12/12/23 05:35 Labs: Laboratory Results - last 24 hr 12/11/23 12/11/23 12/11/23 18:20 18:37 19:37 WBC 6.7 RBC 3.78 L Hgb 11.3 L Hct 33.3 L MCV 88.2 MCH 29.8 MCHC 33.8 RDW 14.7 Plt Count 208 Neut % (Auto) Not Reportable Lymph % (Auto) Not Reportable [place] % (Auto) Not Reportable Eos % (Auto) Not Reportable Baso % (Auto) Not Reportable Neut # (Auto) Lymph # (Auto) Not Reportable [place] # (Auto) Not Reportable Eos # (Auto) Baso # (Auto) Not Reportable Total Counted 100 Seg Neutrophils % 77.0 H Lymphocytes % (Manual) 6.0 L Monocytes % (Manual) 17.0 H Neutrophils # (Manual) 5159 RBC Morphology Normal morphology PT 13.4 H INR 1.2 APTT 37 H Sodium 130 L Potassium 3.5 Chloride 98 Carbon Dioxide 26 BUN 20 H Creatinine 1.22 H Estimated GFR 48 L BUN/Creatinine Ratio 16.4 Glucose 120 H Lactate 0.8 Calcium 8.8 Total Bilirubin 0.8 AST 38 H ALT 33 Alkaline Phosphatase 107 Ammonia Total Protein 7.2 Albumin 3.8 Globulin 3.4 Albumin/Globulin Ratio 1.1 Lipase 57 Procalcitonin 0.676 H TSH Urine RBC 0-1/hpf Urine WBC 30-100/hpf H Ur Squamous Epith Cells >30 /hpf H Urine Bacteria Many (>30) H Ur Culture Indicated? Specimen cultured Vol Urine Centrifuged 10ml (spun) Chlamy pneumoniae PCR Not detected Adenovirus (PCR) Not detected B. pertussis DNA (PCR) Not detected B.parapertussis DNA PCR Not detected Coronavirus OC43 (PCR) Not detected Coronavirus HKU1 (PCR) Not detected Coronavirus 229E (PCR) Not detected SARS-CoV-2 (PCR) Not detected Coronavirus NL63 (PCR) Not detected Human Metapneumovir PCR Not detected Influenza Type A (PCR) Not detected Influenza Type B (PCR) Not detected M. pneumoniae (PCR) Not detected Parainfluenza 1 (PCR) Not detected Parainfluenza 2 (PCR) Not detected Parainfluenza 3 (PCR) Not detected Parainfluenza 4 (PCR) Not detected RSV (PCR) Not detected Entero/Rhino (PCR) Not detected 12/11/23 12/12/23 21:35 05:35 WBC 6.3 RBC 3.64 L Hgb 10.7 L Hct 32.3 L MCV 88.6 MCH 29.4 MCHC 33.1 RDW 14.4 Plt Count 208 Neut % (Auto) 72.5 Lymph % (Auto) 6.7 L [place] % (Auto) 20.3 H Eos % (Auto) 0.3 L Baso % (Auto) 0.2 Neut # (Auto) 4600 Lymph # (Auto) 400 L [place] # (Auto) 1300 H Eos # (Auto) 0 Baso # (Auto) 0 Total Counted Seg Neutrophils % Lymphocytes % (Manual) Monocytes % (Manual) Neutrophils # (Manual) RBC Morphology PT INR APTT Sodium 133 L Potassium 3.2 L Chloride 103 Carbon Dioxide 21 L BUN 17 Creatinine 1.13 H Estimated GFR 53 L BUN/Creatinine Ratio 15.0 Glucose 102 Lactate Calcium 8.5 Total Bilirubin AST ALT Alkaline Phosphatase Ammonia < 9 L Total Protein Albumin Globulin Albumin/Globulin Ratio Lipase Procalcitonin TSH 1.15 Urine RBC Urine WBC Ur Squamous Epith Cells Urine Bacteria Ur Culture Indicated? Vol Urine Centrifuged Chlamy pneumoniae PCR Adenovirus (PCR) B. pertussis DNA (PCR) B.parapertussis DNA PCR Coronavirus OC43 (PCR) Coronavirus HKU1 (PCR) Coronavirus 229E (PCR) SARS-CoV-2 (PCR) Coronavirus NL63 (PCR) Human Metapneumovir PCR Influenza Type A (PCR) Influenza Type B (PCR) M. pneumoniae (PCR) Parainfluenza 1 (PCR) Parainfluenza 2 (PCR) Parainfluenza 3 (PCR) Parainfluenza 4 (PCR) RSV (PCR) Entero/Rhino (PCR) [facility] Social History household members: spouse Smoking Status: Former smoker alcohol intake: never Assessment & Plan Assessment & Plan narrative: 1. Gram-negative ivanna UTI Patient was placed on cefepime on admission. Will transition to ceftriaxone. Await culture results. Anticipate she will be able to discharge home tomorrow. She is significantly improved. 2. Acute metabolic encephalopathy CT showed no acute changes. Likely etiology was her UTI. 3. Hypokalemia Repleted orally this morning. Will recheck labs in the morning 4. Recent forehead injury with resultant hematoma Patent fell into a door approximately 1 week ago and sustained a forehead hematoma and bilateral periorbital bruising. She had a workup done in [place] and with no evidence of fractures. CT scan done in our facility last night also shows no evidence of fractures. She has had no residual symptoms/headaches. 5. Dehydration Creatinine down. Sodium is up. She has good oral intake today. No further IV fluids ordered. 6. Generalized weakness PT evaluation was done today with recommendation for possible home health PT safety evaluation. 7. Hyperlipidemia Atorvastatin ordered for formulary substitution for rosuvastatin 8. Hypertension Usual dose of spironolactone and metoprolol ordered. 9. GERD Pantoprazole ordered as formulary substitution for omeprazole. 10. Depression Resumed her usual doses of bupropion and duloxetine. Code status DNR DNI Prophylaxis Heparin Disposition Likely discharge tomorrow Time-Based Coding :: [TOTAL MINUTES] spent with patient and on the chart (including review of chart, obtaining history, exam, reviewing outside data, placing orders, documenting exam and treatment plan, and counseling patient) on [DATE].
[2023-12-12] MEDS: PANTOPRAZOLE DR 40 MG TABLET PO (14:35)
[2023-12-12] MEDS: DULOXETINE 30 MG CAPSULE 60 MG PO (14:35)
[2023-12-12] MEDS: buPROPion XL 150 MG TAB PO (14:35)
[2023-12-12] MEDS: LACTOBACILLUS ACIDOPHILUS TABLET 1 EACH PO (17:11)
[2023-12-12] MEDS: cefTRIAXone 1,000 MG in SODIUM CHLORIDE 0.9% 100 ML 200 MG IV (17:11)
[2023-12-12 19:49] LABS: Acinetobacter calcoa-baumannii Not Detected (Not Detect); Bacteroides fragilis Not Detected (Not Detect); CTX-M Resistance Not Detected (Not Detect); Candida albicans Not Detected (Not Detect); Candida auris Not Detected (Not Detect); Candida glabrata Not Detected (Not Detect); Candida krusei Not Detected (Not Detect); Candida parapsilosis Not Detected (Not Detect); Candida tropicalis Not Detected (Not Detect); Cryptococcus neoformans/gatti Not Detected (Not Detect); Enterobacter cloacae complex Not Detected (Not Detect); Enterobacterales Detected (Not Detect); Enterococcus faecalis Not Detected (Not Detect); Enterococcus faecium Not Detected (Not Detect); Haemophilus influenzae Not Detected (Not Detect); IMP Resistance Not Detected (Not Detect); KPC Resistance Not Detected (Not Detect); Klebsiella aerogenes Not Detected (Not Detect); Listeria monocytogenes Not Detected (Not Detect); NDM Resistance Not Detected (Not Detect); Neisseria meningitidis Not Detected (Not Detect); OXA-48-like Resistance Not Detected (Not Detect); Proteus species Not Detected (Not Detect); Pseudomonas aeruginosa Not Detected (Not Detect); Salmonella species Not Detected (Not Detect); Serratia marcescens Not Detected (Not Detect); Staphylococcus epidermidis Not Detected (Not Detect); Staphylococcus lugdunensis Not Detected (Not Detect); Staphylococcus species Not Detected (Not Detect); Stenotrophomonas maltophilia Not Detected (Not Detect); Streptococcus agalactiae (Gr B Not Detected (Not Detect); Streptococcus pneumonia Not Detected (Not Detect); Streptococcus pyogenes (Gr A) Not Detected (Not Detect); Streptococcus species Not Detected (Not Detect); VIM Resistance Not Detected (Not Detect); mcr-1 Resistance Not Detected (Not Detect)
[2023-12-12] MEDS: SODIUM CHLORIDE 0.9% FLUSH 10 ML IV (22:34)
[2023-12-13 04:00] VITALS: BP 106/32; PULSE 84; RESP 18; TEMP 37.3; O2SAT 96
[2023-12-13] MEDS: PANTOPRAZOLE DR 40 MG TABLET PO (05:22)
[2023-12-13 05:42] LABS: Hematocrit 30.1 % (36-46); Hemoglobin 10.2 g/dL (12.0-16.0); Mean Corpuscular HGB Conc 33.8 % (30-36); Mean Corpuscular Volume 88.6 fL (80-100); Platelet Count 196 X10^3/uL (150-400); Red Cell Distribution Width 14.9 % (11.6-14.8); White Blood Cell Count 3.6 X10^3/uL (4.5-11.0)
[2023-12-13 05:43] LABS: Add Manual Diff / Slide Review YES
[2023-12-13 05:48] LABS: BUN Creatinine Ratio 16.1 (6-22); Blood Urea Nitrogen 15 mg/dL (7-17); Calcium 8.8 mg/dL (8.4-10.2); Carbon Dioxide 18 mmol/L (22-32); Chloride 110 mmol/L (98-107); Estimated Glomerular Filt Rate > 60 mL/min (>60); Glucose 96 mg/dL (80-110); HEMOLYSIS < 15 (0-50); Potassium 3.6 mmol/L (3.4-5.1); Sodium 137 mmol/L (137-145)
[2023-12-13 06:19] LABS: Neutrophils Absolute Manual 2160 /uL (3000-5900); Rouleaux 2+; Total Cells Counted 100
[2023-12-13 08:00] VITALS: BP 111/46; PULSE 80; RESP 16; TEMP 36.3; O2SAT 97
[2023-12-13] MEDS: ATORVASTATIN 20 MG TABLET PO (08:52)
[2023-12-13 08:53] VITALS: BP 111/46; PULSE 80
[2023-12-13] MEDS: buPROPion XL 150 MG TAB PO (08:53)
[2023-12-13] MEDS: DULOXETINE 30 MG CAPSULE 60 MG PO (08:53)
[2023-12-13] MEDS: HEPARIN 5,000 UNIT/ML VIAL 5000 UNIT SUBCUT (08:53)
[2023-12-13] MEDS: SPIRONOLACTONE 12.5 MG TABLET PO (08:53)
[2023-12-13] MEDS: LACTOBACILLUS ACIDOPHILUS TABLET 1 EACH PO (08:53)
[2023-12-13] MEDS: METOPROLOL ER 25 MG TABLET PO (08:53)
[2023-12-13] MEDS: ACETAMINOPHEN 325 MG TABLET 650 MG PO (08:57)
--- NOTE | 2023-12-13 09:02 | PM.DS.1 ---
History of Present Illness History of Present Illness Date Patient Seen: 12/13/23 Time Patient Seen: 09:02 Chief complaint: Fever, Poss UTI, Feel wonky Narrative: Per admitting provider, 68-year-old female with past medical history of stage four non-Hodgkin?s lymphoma currently on treatment presents with confusion. Of note, the patient is from out of town and is visiting here. The patient had a fall last week and was evaluated at outside hospital, including a CT scan of the brain which was found to have no acute intracranial finding. However, per patient?s family report, the patient was more confused last night. However, there?s no report any focal deficit or weakness. The patient also spike a fever of 101F today. Of note due to patient?s confusion, direct history is unreliable and can be obtained. In emergency room, the patient was hemodynamically stable. However, lab came back with WBC, 6.7 and a normal lactic acid. Sodium 130 Cr 1.22 and pro calcitonin 0.67. UA positive for many bacteria and WBC and positive Lueko esterase. Patient was given vancomycin and Cefepime. CT head shows no acute intracranial finding. Chest x-ray was clear. Discharge Providers Provider Date of admission: 12/11/23 20:31 Discharge Date: 12/13/23 Consults: 12/11/23 20:34 Consult to Occupational Therapy Evaluate & Treat Comment: Physician Instructions: Evaluate and treat Consult to Physical Therapy Evaluate & Treat Comment: Physician Instructions: Evaluate and Treat Discharge provider: Rodney Villatoro DO Summary Hospital Course Discharge Diagnosis: 1. E. Coli UTI and bacteremia with acute metabolic encephalopathy, 2. Acute metabolic encephalopathy 3. Hypokalemia 4. Recent forehead injury with resultant hematoma 5. Dehydration 6. Generalized weakness 7. Hyperlipidemia 8. Hypertension 9. GERD 10. Depression Hospital Course: This is a 68 year old female admitted with an acute metabolic encephalopathy. Urine cultures and ultimately blood cultures were positive. Urine cultures have a gudino sensitive E. coli at the time of discharge, and patient had improvement / resolution of her encephalopathy with ceftriaxone and fluids. Blood cultures are currently pending, but presumed to be the same organism at the time of discharge. She was feeling well the day of discharge, with no confusion and she was tolerating a diet without issues. She improved more quickly than anticipated on presentation. She was continued on another week of levofloxacin for her bacteremia at discharge. She can follow up with primary care provider as previously scheduled. Of note, patient does have a port that appeared clear without signs of infection, given positive urine and blood cultures, it is highly unlikely that her port is a possibility of infection at this time. Time Spent with Patient Time spent: Greater than 30 minutes Exam Vital Signs (past 8 hours): - 12/13/23 04:00 12/13/23 08:00 12/13/23 08:53 Temperature 99.1 F 97.4 F L Pulse Rate 84 80 80 Respiratory Rate 18 16 Blood Pressure 106/32 L 111/46 L 111/46 L Pulse Oximetry 96 97 Oxygen Flow Rate 0 Oxygen Delivery Method Room Air Oxygen Flow Rate 0 Narrative Exam Narrative: GEN: Alert and oriented x 3, NAD HEENT:NC, Face symmetric, she has a large hematoma over her right eyebrow and bilateral periorbital bruising (raccoon eyes) CHEST: Respiratory excursions symmetric, CTAB CV: RRR, no M/R/G ABD: Soft, NT/ND, BT present in all 4 quadrants, no organomegaly or masses EXTR: warm, well perfused, no C/C/E SKIN: warm and dry, no rash NEURO: Alert and oriented x 3, nonfocal Objective Labs 12/13/23 05:20 12/13/23 05:20 Labs: Laboratory Results - last 24 hr 12/11/23 12/13/23 18:20 05:20 WBC 3.6 L RBC 3.40 L Hgb 10.2 L Hct 30.1 L MCV 88.6 MCH 30.0 MCHC 33.8 RDW 14.9 H Plt Count 196 Neut % (Auto) Not Reportable Lymph % (Auto) Not Reportable [place] % (Auto) Not Reportable Eos % (Auto) Not Reportable Baso % (Auto) Not Reportable Lymph # (Auto) Not Reportable [place] # (Auto) Not Reportable Baso # (Auto) Not Reportable Total Counted 100 Seg Neutrophils % 60.0 Lymphocytes % (Manual) 10.0 L Monocytes % (Manual) 28.0 H Eosinophils % (Manual) 2.0 Neutrophils # (Manual) 2160 L RBC Morphology See below Rouleaux 2+ H Sodium 137 Potassium 3.6 Chloride 110 H Carbon Dioxide 18 L BUN 15 Creatinine 0.93 Estimated GFR > 60 BUN/Creatinine Ratio 16.1 Glucose 96 Calcium 8.8 A.calcoaceticus-baumannii cmplx PCR Not detected Bacteroides fragilis Not detected Aurea albicans (PCR) Not detected Aurea auris (PCR) Not detected C. glabrata (PCR) Not detected C. krusei (PCR) Not detected C. parapsilosis (PCR) Not detected C. tropicalis (PCR) Not detected C. neoform/gattii (PCR) Not detected Enterobacterales (PCR) Detected E. cloacae complex PCR Not detected Enterococc faecalis PCR Not detected Enterococc faecium PCR Not detected E. coli (PCR) Detected H. influenzae (PCR) Not detected Klebsiella aerogenes (PCR) Not detected Klebsiella oxytoca PCR Not detected Klebsiella pneumoniae Not detected List. monocytogenes PCR Not detected N. meningitidis (PCR) Not detected Proteus species (PCR) Not detected Salmonella spp. (PCR) Not detected Serratia marcescens PCR Not detected Staphylococcus sp PCR Not detected Staph aureus (PCR) Not detected mecA/C & MREJ Resist Gene Not applicable mecA/C-Methicil Resis Gene Not applicable mcr-1 Colistin Res Gene PCR Not detected Staph epidermidis (PCR) Not detected Staph lugdunensis PCR Not detected S. maltophilia (PCR) Not detected Streptococcus sp PCR Not detected Group A Strep (PCR) Not detected Strep agalactiae (PCR) Not detected Strep pneumoniae (PCR) Not detected P. aeruginosa (PCR) Not detected Prince/B-Vanco Res Genes Not applicable blaIMP Car res Gene PCR Not detected KPC-Carbap Res Gene PCR Not detected blaNDM Car Res Gene PCR Not detected OXA-48 Carbapenem Resis Gene (PCR) Not detected blaVIM Car Res Gene PCR Not detected CTX-M Gene Resistance (PCR) Not detected PFSH Social History household members: spouse Smoking Status: Former smoker alcohol intake: never Discharge Plan Discharge Plan Patient Disposition: Home Provider Discharge Comment: You were admitted to the hospital with urinary tract infection, it does appear that this entered your blood stream. Continue antibiotics for another week after discharge. No other changes to home medications are recommended. Discharge orders & Medications Prescriptions: New levofloxacin 750 mg tablet 750 mg PO DAILY 7 Days Qty: 7 0RF levofloxacin 750 mg tablet 750 mg PO DAILY 7 Days Qty: 7 0RF Continued hydrocodone-acetaminophen 5-325 mg tablet 1 tab PO Q6H PRN (Reason: pain) ondansetron HCl 4 mg tablet 4 - 8 mg PO Q4H PRN (Reason: nausea) duloxetine 60 mg capsule,delayed release(DR/EC) 60 mg PO DAILY trazodone 50 mg tablet 25 mg PO DAILY acyclovir 400 mg tablet 400 mg PO PRN PRN (Reason: Cold Sores) spironolactone 25 mg tablet 12.5 mg PO DAILY gabapentin 300 mg capsule 300 mg PO ONCE PM omeprazole 20 mg capsule,delayed release(DR/EC) 40 mg PO QAM metoprolol succinate 25 mg tablet extended release 24 hr 25 mg PO DAILY rosuvastatin 10 mg tablet 10 mg PO DAILY bupropion HCl 150 mg tablet extended release 24 hr 150 mg PO DAILY Diet/Activity/Treatments Diet: Diet as Tolerated and Regular Activity: As tolerated, no restrictions Visit Report/Discharge Packet Stand Alone Forms: Patient Portal/API, Stroke Signs & Symptoms
--- NOTE | 2023-12-13 09:41 | OT.IP.EVAL ---
Current Diagnoses Urinary tract infection, site not specified (12/11/23) Occupational Therapy Inpatient Evaluation/Re-Eval M1 PT/OT-IP Prior Functional Status Start: 12/12/23 06:56 Freq: NEEDED Status: Discharge Protocol: Document 12/13/23 11:52 CGR (Rec: 12/13/23 12:03 CGR [id number]) Medical Review Prior Functional Status Medical History Reviewed Yes Diet/Fluid Consistency Regular Communication WNLs Mobility and Gait I, one fall when her slipper got stuck and she hit her head into the wall last week Activities of Daily Living and IADL's Pt is IND in all ADLs and IADLs. SHe does her own fincances, cooking, cleaning, and medications. Pt is an active special education bus driver Prior Functional Level (Other details) Flight of steps to enter home. Pt states that their home in [place] is for sale and they are living in an attached apartment above. Information below is for the pts sisters house here in [place] where she will discharge. Social History Household Members spouse Living Arrangements House Number of Floors (Floors) Two Floors Number of Stairs To Enter/Railing? no steps to enter down stairs a flight of stairs to get from lower level to upper level or pt can go outside and walk around to the front where there are 3 steps with R rail to enter the upper level. 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 Pt has no DME. M2 OT-IP Current Condition Start: 12/13/23 11:51 Freq: Status: Discharge Protocol: Document 12/13/23 11:52 CGR (Rec: 12/13/23 12:03 CGR [id number]) Occupational Therapy Current Condition Current Condition Evaluation Date 12/13/23 Treatment Diagnosis fever, confusion, recent fall, UTI Diagnosis Onset Date 12/11/23 M3 OT- IP Subjective and Pain Start: 12/13/23 11:51 Freq: Status: Discharge Protocol: Document 12/13/23 11:52 CGR (Rec: 12/13/23 12:03 CGR [id number]) OT- Subjective Occupational Therapy Visit Type Type Initial Evaluation Visit Start Time 09:15 Visit Stop Time 09:41 OT Pain Assessment Pain When Pain Assessed At Rest Pain Present Pain Present Pain Reported Location Head Intensity 4 Scale Used Numeric (0 - 10) Management Techniques Distraction,Modification of Treatment,Re-positioning M4 OT- IP ADL's Start: 12/13/23 11:51 Freq: Status: Discharge Protocol: Document 12/13/23 11:52 CGR (Rec: 12/13/23 12:03 CGR [id number]) OT [id number] Comments OT Self-Feeding Comments not meal time OT ADL-Grooming General Evaluation Grooming Ability Independent Areas Needing Assistance Face Washing Comments OT Grooming Comments standing at sink OT ADL-Oral Care General Eval Oral Care Ability Independent Areas of Assistance Brushing Teeth Comments Oral Care Comments standing at sink OT ADL-Dressing General Eval Upper Body Dressing Ability Independent Lower Body Dressing Ability Independent Areas Needing Assistance Socks Comments OT Dressing Comments socks and hospital gown OT ADL-Toileting General Evaluation Toileting Ability Independent Comments OT Toileting Comments simulated seated on toielt OT ADL-Bathing Comments OT Bathing Comments not performed M5 OT- IP IADL's Start: 12/13/23 11:51 Freq: Status: Discharge Protocol: Document 12/13/23 11:52 CGR (Rec: 12/13/23 12:03 CGR [id number]) OT-Instrumental Activities of Daily Living Deficits IADL Deficits Identified No Deficits Home Safety Awareness Awareness of Need for Assistance at Home Good Awareness Ability to Problem Solve Emergency Able to Problem Solve Situations Medication Management Medication Management No Deficits Identified Money Management Money Management No Deficits Identified Meal Preparation Meal Preparation No Deficits Identified Infection Preventionist Infection Preventionist No Deficits Identified Driving Driving Comments Pt is an active special education bus driver M6 OT- IP Functional Cognition Start: 12/13/23 11:51 Freq: Status: Discharge Protocol: Document 12/13/23 11:52 CGR (Rec: 12/13/23 12:03 CGR [id number]) Cognitive Factors Limiting Selfcare Function Cognitive Ability Level of Alertness Alert Patient Orientation Name,Age,Birthday,Month,Date, Year,Day of Week,Place, Situation Attention Span Ability Capable of Focused Attention, Capable of Sustained Attention Ability to Follow Commands Able to Follow Multi-Step Commands OT- Vision and Hearing OT- Hearing Assessment OT- Hearing Assessment WFL OT- Vision Assessment Visual Acuity WFL Visual Attentiveness WFL Occular Pursuits WFL Visual Convergence WFL M7 OT- IP Mobility and Balance Start: 12/13/23 11:51 Freq: Status: Discharge Protocol: Document 12/13/23 11:52 CGR (Rec: 12/13/23 12:03 CGR [id number]) OT- Bed Mobility Assessment Supine to Sit Supine to Sit Assist Independent Scooting Scooting to Edge of Bed Independent OT-Transfer Assessment Sit to and From Stand Sit to and from Stand Standby Assistance Transfers Transfer Ability Standby Assistance Technique Transfer Destination Bed,Chair,Toilet Transfer Technique Stand Step Pivot Devices Transfer Assistive Devices Gait Belt Comments Mobility Comments mobility around the room without AD OT- Balance Assessment Sitting Balance and Reactions Static Sitting Balance Ability Normal Dynamic Sitting Balance Ability Normal M8 OT- IP Objective Assessments Start: 12/13/23 11:51 Freq: Status: Discharge Protocol: Document 12/13/23 11:52 CGR (Rec: 12/13/23 12:03 CGR [id number]) OT Gross Range of Motion Upper Extremity Range of Motion Assessment Within Functional Limits OT Strength Upper Extremity Strength Assessment Within Functional Limits Comments Strength Comments grossly 4/5 OT- Coordination Assessment Upper Extremity Finger to Nose Test Within Functional Limits Finger Tapping Test Within Functional Limits Comments Coordination Comments Pt needed extra time for the fine motor task but of note is missing the distal pointer finger of her L hand. OT-Muscle Tone Assessment Muscle Tone WNL Yes OT Sensation Assessment Edema Edema Absent M9 OT- IP Assessment and Plan Start: 12/13/23 11:51 Freq: Status: Discharge Protocol: Document 12/13/23 11:52 CGR (Rec: 12/13/23 12:03 CGR [id number]) OT Summary Assessment and Plan Potential Rehabilitation Potential Excellent Analytic Complexity at Evaluation Low Summary Progress Towards Goals Safe For Discharge,Goals Met Assessment Summary Pt presents as a low complexity evaluation s/p admit for confusion and UTI. Pt appears to be at her baseline. No further OT needs. Frequency of Treatment Frequency Of Treatment Discharge Discharge Recommendations OT Discharge Recommendations Home Transportation Needs at Discharge Private Vehicle
--- NOTE | 2023-12-13 11:50 | PC.NURSE ---
Patient is A&OX4 this a.m. VSS, afebrile and she is able to ambulate about her room without difficulty. She is cleared for discharge home today by hospitalist on po antibiotics. She verbalizes understanding of medications, and worsening symptoms. She is escorted via w/ch by [employer] to private vehicle with her for discharge home today at 1145 a.m. with all of her belongings and prescription.
--- NOTE | 2023-12-13 12:10 | CM.DPNOTE ---
DCP Cont Reviewed chart. Patient discussed in multidisciplinary rounds. Patient has been discharged home and has returned to cognitive and functional baseline. Patient is returning home w/assist from spouse and friend, close outpatient follow up recommended. No needs from this CM team. JW
--- NOTE | 2023-12-21 14:27 | PC.NURSE ---
late entry- per RN 12/10 vanco dose completed at 2230 and IV NS ended at 2230
== END 2023-12-13 11:45 | disposition home or self-care (01) | DRG 689 ==
LOC: ED 20:28 → AC 20:31
PROVIDERS: Family Medicine; Admitting Provider Internal Medicine; Emergency Provider Emergency Medicine; Referring Provider Emergency Medicine; Visit Provider Internal Medicine
DX: N39.0 Urinary tract infection, site not specified (principal); G93.41 Metabolic encephalopathy; C85.90 Non-Hodgkin lymphoma, unspecified, unspecified site; E86.0 Dehydration; R53.1 Weakness; E78.5 Hyperlipidemia, unspecified; I10 Essential (primary) hypertension; E87.6 Hypokalemia; S00.83XA Contusion of other part of head, initial encounter; S00.12XA Contusion of left eyelid and periocular area, initial encounter; S00.11XA Contusion of right eyelid and periocular area, initial encounter; K21.9 Gastro-esophageal reflux disease without esophagitis; F32.A Depression, unspecified; B96.20 Unspecified Escherichia coli [E. coli] as the cause of diseases classified elsewhere; B00.1 Herpesviral vesicular dermatitis; W18.30XA Fall on same level, unspecified, initial encounter; Z87.891 Personal history of nicotine dependence; Z66 Do not resuscitate
CPT/HCPCS: 36415; 36591; 70450; 71045; 80048; 80053; 81003; 81015; 82140; 83605; 83690; 84145; 84443; 85007; 85025; 85610; 85730; 87040; 87077; 87086; 87154; 87186; 87633; 93005; 93010; 96361; 96365; 96366; 96367; 97161; 97165; 97535; 99284; 99285; J0692; J0696; J1642; J1644